=== PATIENT | female | born 1970 | race Two or more races ===

== ENCOUNTER 2024-05-30 14:43 | Emergency (ER) | payer OTHER ==
[~2024-05-30] VITALS: Ht 162.6 cm; Wt 74.8 kg
[2024-05-30 14:45] VITALS: BP 113/71; TEMP 98.6; O2SAT 98
[2024-05-30] MEDS ORDERED: IBUP-1490 PO (15:53)
== END 2024-05-30 15:54 | disposition home or self-care (01) ==
LOC: ER 14:58
DX: S09.8XXA Other specified injuries of head, initial encounter (principal); M54.2 Cervicalgia; Z79.899 Other long term (current) drug therapy; W01.10XA Fall on same level from slipping, tripping and stumbling with subsequent striking against unspecified object, initial encounter; Y93.89 Activity, other specified; Y92.89 Other specified places as the place of occurrence of the external cause; Y99.0 Civilian activity done for income or pay